=== PATIENT | female | born 1935 | race Caucasian/White ===

== ENCOUNTER 2021-12-19 17:51 | Inpatient (IN) | payer MEDICARE ==
[~2021-12-19] VITALS: Ht 167.6 cm; Wt 95.7 kg
[2021-12-19 18:52] LABS: HEMATOCRIT 26.8 % (37.0-47.0); MEAN CELL VOLUME 98.5 fl (81.0-99.0); MEAN CORPUSCULAR HGB 29.4 pg (27.0-31.0); MEAN CORPUSCULAR HGB CONC 29.9 g/dl (33.0-37.0); MEAN PLATELET VOLUME 9.4 fl (9.6-12.3); PLATELET COUNT AUTOMATED 441 10*3/uL (130-400); RED BLOOD COUNT 2.72 10*6/uL (4.10-5.10); RED CELL DISTRI WIDTH 16.4 % (0-14.5); WHITE BLOOD COUNT 14.6 10*3/uL (4.8-10.8)
[2021-12-19 18:58] VITALS: BP 137/65
[2021-12-19 19:03] LABS: ACT PARTIAL THROMBO TIME 25.4 SECONDS (20.0-32.1)
[2021-12-19 19:08] LABS: ALBUMIN 2.1 gm/dl (3.1-4.5); ALKALINE PHOSPHATASE 77 U/L (45-117); BUN 13 mg/dl (7-24); CHLORIDE 99 mmol/L (98-107); CPK 38 U/L (26-192); CREATININE 0.64 mg/dL (0.55-1.02); POTASSIUM 3.7 mmol/L (3.5-5.1); SGOT/AST 22 IU/L (3-35); SGPT/ALT 24 U/L (12-78); SODIUM 140 mmol/L (136-145); TOTAL PROTEIN 5.5 gm/dL (6.4-8.2)
[2021-12-19 19:12] LABS: OVALOCYTES FEW; PLATELET SUFFICIENCY HIGH (NORMAL); TOTAL CELLS COUNTED 100 #CELLS
[2021-12-19 20:01] VITALS: BP 138/82
[2021-12-19 20:18] LABS: ABG BASE EXCESS 8.6 mmol/L (-2.0-2.0); ARTERIAL BLOOD GAS PH 7.309 (7.35-7.45); ARTERIAL BLOOD GAS PO2 73.6 (80-90)
[2021-12-19 20:19] LABS: BILIRUBIN Negative (Negative); BLOOD 2+ (Negative); CLARITY Clear (Clear); COLOR Yellow (Yellow); GLUCOSE Negative (Negative); KETONE Negative (Negative); LEUKO ESTERASE Negative (Negative); NITRITE Positive (Negative); PH 5.5 (4.5-8.0); UROBILINOGEN 0.2 E.U./dl (0.0-1.0)
[2021-12-19 20:32] LABS: BACTERIA 2+; HYALINE CAST 0-2
[2021-12-19] MEDS ORDERED: ELIQUIS5 M1 PO (21:02)
[2021-12-19] MEDS ORDERED: VITAMIN B-121000 MC2 PO (21:03)
[2021-12-19] MEDS ORDERED: ENTRESTO 97 MG1 EACH PO (21:03)
[2021-12-19] MEDS ORDERED: LASIX40 MG PO (21:04)
[2021-12-19] MEDS ORDERED: FEROSUL325 MG PO (21:04)
[2021-12-19] MEDS ORDERED: LEVOTHYROXINE100 MC1 PO (21:05)
[2021-12-19] MEDS ORDERED: NEURONTIN100 MG PO (21:05)
[2021-12-19] MEDS ORDERED: MELATONIN3 MG PO (21:06)
[2021-12-19] MEDS ORDERED: METOPROLOL SUCC50 M2 PO (21:07)
[2021-12-19] MEDS ORDERED: ROPINIROLE HYDRO2 M2 PO (21:08)
[2021-12-19] MEDS ORDERED: PROTONIX20 MG PO (21:08)
[2021-12-19] MEDS ORDERED: ALDACTONE25 M1 PO (21:09)
[2021-12-19] MEDS ORDERED: TROSPIUM CHLORI20 M1 PO (21:10)
[2021-12-19] MEDS ORDERED: BREO ELLIPTA 11 EACH INH (21:11)
[2021-12-19] MEDS ORDERED: VENT7GM INH (21:11)
[2021-12-19] MEDS ORDERED: FLONASE ALLERG9.9 ML NAS (21:12)
[2021-12-19] MEDS ORDERED: Ipratropium Brom3 ML INH (21:13)
[2021-12-19 22:04] VITALS: BP 138/82; BP 157/92
[2021-12-19 23:13] VITALS: BP 152/66
[2021-12-20] VITALS (65 sets, daily range): BP systolic 71–154; BP diastolic 34–98
[2021-12-20] MEDS ORDERED: ATIVAN1 MG PO (11:23)
[2021-12-20] MEDS ORDERED: DULOXETINE HCL30 MG PO (11:25)
[2021-12-20] MEDS ORDERED: ELIQUIS5 M1 PO (11:27)
[2021-12-21] VITALS (74 sets, daily range): BP systolic 52–165; BP diastolic 27–122
[2021-12-21 06:09] LABS: ALBUMIN 1.9 gm/dl (3.1-4.5); POTASSIUM 4.1 mmol/L (3.5-5.1)
[2021-12-21 06:20] LABS: MEAN CELL VOLUME 101.1 fl (81.0-99.0); MEAN CORPUSCULAR HGB 28.2 pg (27.0-31.0); MEAN CORPUSCULAR HGB CONC 27.9 g/dl (33.0-37.0); MEAN PLATELET VOLUME 9.9 fl (9.6-12.3); PLATELET COUNT AUTOMATED 395 10*3/uL (130-400); RED BLOOD COUNT 2.77 10*6/uL (4.10-5.10); RED CELL DISTRI WIDTH 15.9 % (0-14.5); WHITE BLOOD COUNT 30.7 10*3/uL (4.8-10.8)
[2021-12-21 06:41] LABS: CREATININE 1.92 mg/dL (0.55-1.02); TOTAL PROTEIN 5.6 gm/dL (6.4-8.2)
[2021-12-21 07:25] LABS: TOTAL CELLS COUNTED 100 #CELLS
[2021-12-21 08:00] LABS: ACANTHOCYTES FEW
[2021-12-21 08:01] LABS: OVALOCYTES FEW; PLATELET SUFFICIENCY NORMAL (NORMAL); TARGET CELLS FEW; TOXIC GRANULATION SLIGHT
[2021-12-21 08:27] LABS: ABG BASE EXCESS 7.6 mmol/L (-2.0-2.0); ARTERIAL BLOOD GAS PH 7.306 (7.35-7.45); ARTERIAL BLOOD GAS PO2 85.4 (80-90)
[2021-12-22 04:00] VITALS: BP 130/62
[2021-12-22 05:59] LABS: ALBUMIN 1.9 gm/dl (3.1-4.5); CREATININE 2.72 mg/dL (0.55-1.02); POTASSIUM 4.2 mmol/L (3.5-5.1); TOTAL PROTEIN 5.5 gm/dL (6.4-8.2)
[2021-12-22 07:14] LABS: HEMATOCRIT 31.3 % (37.0-47.0); MEAN CORPUSCULAR HGB 28.9 pg (27.0-31.0); MEAN CORPUSCULAR HGB CONC 29.7 g/dl (33.0-37.0); MEAN PLATELET VOLUME 10.4 fl (9.6-12.3); NUCLEATED RED BLOOD CELL 0.2 % (0.0-0.0); RED BLOOD COUNT 3.22 10*6/uL (4.10-5.10); RED CELL DISTRI WIDTH 16.6 % (0-14.5); WHITE BLOOD COUNT 16.8 10*3/uL (4.8-10.8)
[2021-12-22 07:18] LABS: MEAN CELL VOLUME 97.2 fl (81.0-99.0); PLATELET COUNT AUTOMATED 276 10*3/uL (130-400)
[2021-12-22 07:44] LABS: BURR CELLS FEW; OVALOCYTES FEW; PLATELET SUFFICIENCY NORMAL (NORMAL); POLYCHROMASIA SLIGHT; TOTAL CELLS COUNTED 100 #CELLS
[2021-12-22 07:45] LABS: TARGET CELLS FEW; TOXIC GRANULATION SLIGHT
[2021-12-22 08:00] VITALS: BP 132/67
[2021-12-22 12:00] VITALS: BP 159/87
[2021-12-22 16:00] VITALS: BP 167/78
[2021-12-22 18:53] VITALS: BP 136/63
[2021-12-22 20:00] VITALS: BP 156/71
[2021-12-23] VITALS: BP 155/77
[2021-12-23 04:00] VITALS: BP 124/56
[2021-12-23 06:12] LABS: ALBUMIN 1.9 gm/dl (3.1-4.5); CREATININE 3.01 mg/dL (0.55-1.02); POTASSIUM 4.1 mmol/L (3.5-5.1); TOTAL PROTEIN 5.4 gm/dL (6.4-8.2)
[2021-12-23 06:38] LABS: HEMATOCRIT 23.6 % (37.0-47.0); MEAN CELL VOLUME 95.5 fl (81.0-99.0); MEAN CORPUSCULAR HGB 28.3 pg (27.0-31.0); MEAN CORPUSCULAR HGB CONC 29.7 g/dl (33.0-37.0); MEAN PLATELET VOLUME 10.4 fl (9.6-12.3); NUCLEATED RED BLOOD CELL 0.1 10*3/uL (0.0-0.0); NUCLEATED RED BLOOD CELL 0.6 % (0.0-0.0); PLATELET COUNT AUTOMATED 264 10*3/uL (130-400); RED BLOOD COUNT 2.47 10*6/uL (4.10-5.10); RED CELL DISTRI WIDTH 16.2 % (0-14.5); WHITE BLOOD COUNT 13.3 10*3/uL (4.8-10.8)
[2021-12-23 07:44] LABS: TOTAL CELLS COUNTED 100 #CELLS
[2021-12-23 07:45] LABS: BURR CELLS FEW; PLATELET SUFFICIENCY NORMAL (NORMAL); POLYCHROMASIA SLIGHT; SCHISTOCYTES FEW; TOXIC GRANULATION SLIGHT
[2021-12-23 08:00] VITALS: BP 140/75
[2021-12-23 12:00] VITALS: BP 186/68
[2021-12-23 16:32] VITALS: BP 166/88
[2021-12-23 20:00] VITALS: BP 176/88
[2021-12-24] VITALS (7 sets, daily range): BP systolic 128–188; BP diastolic 64–90
[2021-12-24 05:37] LABS: ALBUMIN 2.1 gm/dl (3.1-4.5); CREATININE 3.16 mg/dL (0.55-1.02); POTASSIUM 4.4 mmol/L (3.5-5.1); TOTAL PROTEIN 5.7 gm/dL (6.4-8.2)
[2021-12-24 06:13] LABS: MEAN CELL VOLUME 94.9 fl (81.0-99.0); MEAN CORPUSCULAR HGB 28.1 pg (27.0-31.0); MEAN CORPUSCULAR HGB CONC 29.6 g/dl (33.0-37.0); MEAN PLATELET VOLUME 10.4 fl (9.6-12.3); NUCLEATED RED BLOOD CELL 0.1 10*3/uL (0.0-0.0); PLATELET COUNT AUTOMATED 243 10*3/uL (130-400); RED BLOOD COUNT 2.53 10*6/uL (4.10-5.10); RED CELL DISTRI WIDTH 16.3 % (0-14.5); WHITE BLOOD COUNT 12.2 10*3/uL (4.8-10.8)
[2021-12-24 06:45] LABS: BASO % 0.1 % (0.0-1.0); LYMPH # 0.7 10*3/uL (1.3-4.4); LYMPH % 5.7 % (27.0-41.0); MONO # 0.7 10*3/uL (0.1-1.0); MONO % 5.6 % (3.0-9.0); NEUT # 10.6 10*3/uL (2.3-7.9)
[2021-12-24 17:17] LABS: URINE CREATININE RANDOM 84.4 mg/dL
[2021-12-25] VITALS (23 sets, daily range): BP systolic 118–176; BP diastolic 57–93
[2021-12-25 06:07] LABS: HEP B CORE AB, IGM Negative (Negative); HEPATITIS B SURFACE AG Negative (Negative); HEPATITIS C VIRUS ANTIBODY <0.1 s/co (0.0-0.9)
[2021-12-25 06:49] LABS: HEMATOCRIT 22.1 % (37.0-47.0); MEAN CELL VOLUME 93.6 fl (81.0-99.0); MEAN CORPUSCULAR HGB 28.8 pg (27.0-31.0); MEAN CORPUSCULAR HGB CONC 30.8 g/dl (33.0-37.0); MEAN PLATELET VOLUME 10.8 fl (9.6-12.3); NUCLEATED RED BLOOD CELL 0.2 10*3/uL (0.0-0.0); NUCLEATED RED BLOOD CELL 1.8 % (0.0-0.0); PLATELET COUNT AUTOMATED 171 10*3/uL (130-400); RED BLOOD COUNT 2.36 10*6/uL (4.10-5.10); RED CELL DISTRI WIDTH 16.7 % (0-14.5)
[2021-12-25 07:09] LABS: ALBUMIN 2.2 gm/dl (3.1-4.5); CREATININE 3.14 mg/dL (0.55-1.02); POTASSIUM 4.6 mmol/L (3.5-5.1); TOTAL PROTEIN 5.5 gm/dL (6.4-8.2)
[2021-12-25 07:49] LABS: PLATELET SUFFICIENCY NORMAL (NORMAL); TOTAL CELLS COUNTED 100 #CELLS
[2021-12-26] VITALS: BP 150/78
[2021-12-26 06:47] LABS: ALBUMIN 2.4 gm/dl (3.1-4.5); CREATININE 3.05 mg/dL (0.55-1.02); POTASSIUM 4.5 mmol/L (3.5-5.1); TOTAL PROTEIN 5.8 gm/dL (6.4-8.2)
[2021-12-26 06:56] LABS: HEMATOCRIT 29.6 % (37.0-47.0); MEAN CELL VOLUME 90.8 fl (81.0-99.0); MEAN CORPUSCULAR HGB 28.5 pg (27.0-31.0); MEAN CORPUSCULAR HGB CONC 31.4 g/dl (33.0-37.0); MEAN PLATELET VOLUME 11.8 fl (9.6-12.3); NUCLEATED RED BLOOD CELL 0.4 10*3/uL (0.0-0.0); NUCLEATED RED BLOOD CELL 2.2 % (0.0-0.0); PLATELET COUNT AUTOMATED 125 10*3/uL (130-400); RED BLOOD COUNT 3.26 10*6/uL (4.10-5.10); RED CELL DISTRI WIDTH 17.6 % (0-14.5)
[2021-12-26 08:00] VITALS: BP 138/55
[2021-12-26 08:14] LABS: OVALOCYTES FEW; PLATELET SUFFICIENCY LOW (NORMAL); POLYCHROMASIA SLIGHT; TOTAL CELLS COUNTED 100 #CELLS; TOXIC GRANULATION SLIGHT
[2021-12-26 11:30] LABS: ABG BASE EXCESS 2.2 mmol/L (-2.0-2.0); ARTERIAL BLOOD GAS PH 7.302 (7.35-7.45); ARTERIAL BLOOD GAS PO2 78.7 (80-90)
[2021-12-26 12:00] VITALS: BP 153/67
== END 2021-12-26 16:24 | disposition hospice, inpatient (51) | DRG 871 ==
LOC: ED 17:51 → EDHOLD 12-20 06:30 → ICCU 12-20 06:30 → 4E 12-25 21:42
PROVIDERS: Emergency Medicine; Internal Medicine; Internal Medicine Critical Care Medicine; Internal Medicine Nephrology; ADMIT Internal Medicine; ATTEND Internal Medicine
PROC: 5A09457 Assistance with Respiratory Ventilation, 24-96 Consecutive Hours, Continuous Positive Airway Pressure (ICD-10-PCS; principal; 2021-12-20)
PROC: 5A09457 Assistance with Respiratory Ventilation, 24-96 Consecutive Hours, Continuous Positive Airway Pressure (ICD-10-PCS; 2021-12-21)
PROC: 02HV33Z Insertion of Infusion Device into Superior Vena Cava, Percutaneous Approach (ICD-10-PCS; 2021-12-21)
PROC: 5A0935A Assistance with Respiratory Ventilation, Less than 24 Consecutive Hours, High Flow/Velocity Cannula (ICD-10-PCS; 2021-12-21)
PROC: 5A09357 Assistance with Respiratory Ventilation, Less than 24 Consecutive Hours, Continuous Positive Airway Pressure (ICD-10-PCS; 2021-12-23)
PROC: 5A0935A Assistance with Respiratory Ventilation, Less than 24 Consecutive Hours, High Flow/Velocity Cannula (ICD-10-PCS; 2021-12-23)
PROC: 5A09357 Assistance with Respiratory Ventilation, Less than 24 Consecutive Hours, Continuous Positive Airway Pressure (ICD-10-PCS; 2021-12-24)
PROC: 5A0935A Assistance with Respiratory Ventilation, Less than 24 Consecutive Hours, High Flow/Velocity Cannula (ICD-10-PCS; 2021-12-24)
PROC: 30233N1 Transfusion of Nonautologous Red Blood Cells into Peripheral Vein, Percutaneous Approach (ICD-10-PCS; 2021-12-25)
PROC: 5A09357 Assistance with Respiratory Ventilation, Less than 24 Consecutive Hours, Continuous Positive Airway Pressure (ICD-10-PCS; 2021-12-25)
PROC: BD1BYZZ Fluoroscopy of Mouth/Oropharynx using Other Contrast (ICD-10-PCS; 2021-12-25)
PROC: 5A09357 Assistance with Respiratory Ventilation, Less than 24 Consecutive Hours, Continuous Positive Airway Pressure (ICD-10-PCS; 2021-12-26)
DX: A41.9 Sepsis, unspecified organism (principal); J96.21 Acute and chronic respiratory failure with hypoxia; E43 Unspecified severe protein-calorie malnutrition; N17.0 Acute kidney failure with tubular necrosis; J18.9 Pneumonia, unspecified organism; J96.22 Acute and chronic respiratory failure with hypercapnia; N39.0 Urinary tract infection, site not specified; I48.0 Paroxysmal atrial fibrillation; I95.9 Hypotension, unspecified; D64.9 Anemia, unspecified; F41.1 Generalized anxiety disorder; E03.9 Hypothyroidism, unspecified; I50.9 Heart failure, unspecified; Z66 Do not resuscitate; N18.9 Chronic kidney disease, unspecified; R13.10 Dysphagia, unspecified; Z79.01 Long term (current) use of anticoagulants; Z51.5 Encounter for palliative care; Z86.16 Personal history of COVID-19; Z68.34 Body mass index [BMI] 34.0-34.9, adult

== ENCOUNTER 2021-12-26 16:41 | Inpatient (IN) | payer OTHER ==
[~2021-12-26] VITALS: Ht 167.6 cm; Wt 95.7 kg
[~2021-12-26 16:41] MED LIST: ALDACTONE25 M1 PO; ATIVAN1 MG PO; BREO ELLIPTA 11 EACH INH; DULOXETINE HCL30 MG PO; ELIQUIS5 M1 PO; ENTRESTO 97 MG1 EACH PO; FEROSUL325 MG PO; FLONASE ALLERG9.9 ML NAS; Ipratropium Brom3 ML INH; LASIX40 MG PO; LEVOTHYROXINE100 MC1 PO; MELATONIN3 MG PO; METOPROLOL SUCC50 M2 PO; NEURONTIN100 MG PO; PROTONIX20 MG PO; ROPINIROLE HYDRO2 M2 PO; TROSPIUM CHLORI20 M1 PO; VENT7GM INH; VITAMIN B-121000 MC2 PO
[2021-12-26 16:45] VITALS: BP 148/63
== END 2021-12-26 20:45 | DRG 871 ==
LOC: 4E 16:41
PROVIDERS: ADMIT Internal Medicine; ATTEND Internal Medicine
DX: A41.9 Sepsis, unspecified organism (principal); J18.9 Pneumonia, unspecified organism; N17.0 Acute kidney failure with tubular necrosis; J96.02 Acute respiratory failure with hypercapnia; J96.01 Acute respiratory failure with hypoxia; R65.20 Severe sepsis without septic shock; N39.0 Urinary tract infection, site not specified; U09.9 Post COVID-19 condition, unspecified